=== PATIENT | male | born 1980 | race Caucasian/White ===

== ENCOUNTER 2018-05-23 15:12 | Emergency (ER) | payer OTHER ==
[2018-05-23 15:27] VITALS: BP 114/76
--- NOTE | 2018-05-23 16:06 | EDPHY ---
H & P Time Seen by Provider: 05/23/18 15:36 HPI/ROS: CHIEF COMPLAINT: Abdominal discomfort since February 2018 HISTORY OF PRESENT ILLNESS: 38-year-old male with no history of abdominal surgeries in the ER with mother complaining of abdominal discomfort and "grumbling" as well as bloating since February 2018. He notes that he is unable to tolerate most foods noting that shortly after eating a few bites he will develop abdominal bloating and grumbling sensation. He experiences regular watery diarrhea as well. No nausea or vomiting. He is scheduled to have upper endoscopic evaluation in 1-2 weeks with [facility]. Informs me that he called the ER earlier today, spoke with an individual and would like upper endoscopic evaluation. Denies: Fever, chills, rash, urinary abnormality, testicular pain, abdominal or genitalia trauma, melena, hematochezia REVIEW OF SYSTEMS: 10 systems reviewed and negative with the exception of the elements mentioned in the history of present illness PAST MEDICAL & SURGICAL HISTORY: West Nile virus SOCIAL HISTORY: Nonsmoker PHYSICAL EXAM (Prior to examination, patient consented to physical exam, hands were washed and my usual and customary physical exam procedures followed) 1) GENERAL: Well-developed, well-nourished, alert and oriented. Appears nontoxic, answering questions appropriate 2) HEAD: Normocephalic, atraumatic 3) HEENT: Pupils equal, round, reactive to light bilaterally. Sclera anicteric. Nasopharynx, oropharynx, clear, no lesions. Moist Mucous membranes. 4) NECK: Full range of motion, no meningeal signs. 5) LUNGS: Clear auscultation bilaterally, no wheezes, no rhonchi, no retractions. 6) HEART: Regular rate and rhythm, no murmur, no heave, no gallop. 7) ABDOMEN: No guarding, no rebound, no focal tenderness, negative McBurney's, negative Evans's, negative Rovsing's, negative peritoneal sign, I am unable to elicit any abdominal 8) MUSCULOSKELETAL: Moving all extremities, no focal areas of tenderness, no obvious trauma. No peripheral edema or discoloration. 9) BACK: No CVA tenderness, no midline vertebral tenderness, no fluctuance, no step-off, no obvious trauma, no visual or palpable abnormality. 10) SKIN: No rash, no petechiae. 11) Psychiatric: Patient is oriented X 3, there is no agitation. DIFFERENTIAL DIAGNOSIS: My differential diagnosis includes, but is not limited to, acute appendicitis, acute cholecystitis, bowel obstruction, acute pancreatitis, gastritis and urinary tract infection. The patient understands that this diagnosis is provisional and can never be 100% accurate. This is a partial list of diagnoses considered. These considerations are based on history , physical exam, past history and reassessment. Smoking Status: Never smoked Constitutional: Initial Vital Signs Temperature (C) 37 C 05/23/18 15:23 Heart Rate 67 05/23/18 15:23 Respiratory Rate 18 05/23/18 15:23 Blood Pressure 114/76 05/23/18 15:23 O2 Sat (%) 97 05/23/18 15:23 O2 Delivery Mode Room Air Allergies/Adverse Reactions: No Known Allergies Allergy (Unverified 05/23/18 15:28) Home Medications: Medication Instructions Recorded Famotidine [Pepcid] 20 mg PO BID #10 tablet 05/23/18 Finasteride 05/23/18 Nexium 05/23/18 MDM/Departure - MDM ED Course/Re-evaluation: 4:04 p.m.: Patient had laboratory studies obtained a few days ago and I reviewed these with the patient and his mother. He is noted to have elevated H& H at that time, possibly hemoconcentrated. Here in the ER I have evaluated the patient. I am unable to elicit any abdominal pain. I informed the patient that I think that acute surgical abdominal pathology is less than likely in this patient at this time. He repeatedly expresses frustration at me and at the "Medical System". He informs me that he was expecting to have gastroenterology and upper endoscopic evaluation from the ER and expresses his displeasure after his conversation with an ER staff member when he called earlier today, stating that he was told that he could get endoscopic evaluation. I have offered to perform repeat blood work and offered IV hydration which he declines. We discussed indications risks benefits of CT imaging which I think at this time would be of limited utility given the longevity of his symptoms and my low pretest suspicion for acute surgical abdominal pathology such as acute appendicitis, acute cholecystitis, bowel obstruction. Nonetheless I offered this and he declines this. I have empathized with his ongoing symptoms since February 2018 and strongly recommend he keep his follow up with Gastroenterology. He became progressively visibly upset , repeatedly asking "What am I supposed to eat?" I recommended bland food , recommended keeping a food journal. I have recommended at a GI cocktail which he declines. I Have recommended initiation of Pepcid as he is already on a proton pump inhibitor which he declines. Once again he expresses displeasure in frustration at his interaction in the emergency department today and left the ER visibly upset. - Depart Disposition: Home, Routine, Self-Care Clinical Impression: Abdominal pain Qualifiers: Abdominal location: generalized Qualified Code(s): R10.84 - Generalized abdominal pain Condition: Good Instructions: Chronic Abdominal Pain (ED) Additional Instructions: Seek immediate medical attention if you develop new or worsening symptoms, if you develop fevers, chills, inability to tolerate oral intake or any other symptoms that concerns you. Prescriptions: Famotidine [Pepcid] 20 mg PO BID #10 tablet Referrals: Liz Valdez MD [Medical Doctor] - As per Instructions
== END 2018-05-23 16:26 | disposition home or self-care (01) ==
DX: R10.84 Generalized abdominal pain (principal)